=== PATIENT | male | born 1940 | race Caucasian/White ===

== ENCOUNTER → 2019-12-30 | Outpatient (CLI) | payer MEDICARE, MEDICAID ==
[~2019-12-30] MED LIST: ASPI325T85 PO; DIGO-37 PO; FENO160T9 PO; PRAS10TA6 PO; RANI150T7 PO; SIMV-46 PO
== END | disposition home or self-care (01) ==
LOC: CT 15:58
PROVIDERS: ATTEND Neurological Surgery
DX: I62.03 Nontraumatic chronic subdural hemorrhage (principal); I67.82 Cerebral ischemia; G31.9 Degenerative disease of nervous system, unspecified

== ENCOUNTER → 2020-02-26 | Outpatient (CLI) | payer MEDICARE, MEDICAID | END | disposition home or self-care (01) | LOC: CT 12:30 | PROVIDERS: ATTEND Neurological Surgery | DX: S06.5X9A Traumatic subdural hemorrhage with loss of consciousness of unspecified duration, initial encounter (principal); G96.08 Other cranial cerebrospinal fluid leak; G31.9 Degenerative disease of nervous system, unspecified; I67.82 Cerebral ischemia; X58.XXXA Exposure to other specified factors, initial encounter; Y93.89 Activity, other specified; Y92.89 Other specified places as the place of occurrence of the external cause; Y99.8 Other external cause status ==

== ENCOUNTER → 2020-12-04 | Outpatient (CLI) | payer MEDICARE, MEDICAID ==
[~2020-12-04] MED LIST changes: +ASPI-867 PO; -ASPI325T85 PO
== END | disposition home or self-care (01) ==
LOC: CT 08:45
PROVIDERS: ATTEND Neurological Surgery
DX: I67.82 Cerebral ischemia (principal); G96.08 Other cranial cerebrospinal fluid leak; G31.89 Other specified degenerative diseases of nervous system; G93.89 Other specified disorders of brain